=== PATIENT | female | born 1995 | race Asian ===

== ENCOUNTER 2016-07-15 00:36 | Emergency (ER) | payer OTHER ==
[~2016-07-15] VITALS: Ht 167.6 cm; Wt 61.5 kg
[2016-07-15 00:39] VITALS: BP 135/92; PULSE 99; TEMP 37.2; O2SAT 99; Ht 167.6 cm; Wt 61.5 kg
--- NOTE | 2016-07-15 00:59 | EMERGENCY ROOM VISIT NOTE ---
History Report prepared by Destinyibdeclan: Abel Ortega Under the Supervision of: Dr. Man Modi D.O. First contact with patient: 00:45 Chief Complaint: LEG PAIN,LEG INJURY Stated Complaint: LEG INJURY History of Present Illness The patient is a 21 year old female who presents to the Emergency Room with complaints of a worsening infection on her left leg that started three days ago. The patient scraped her leg on a chair prior to the infection. She denies any fevers. The patient denies any medical problems, including diabetes. She does not have any known drug allergies. The patient's tetanus shot is up to date. Source of History: patient Onset: three days ago Position: leg (left) Quality: other (infection) Timing: worsening Associated Symptoms: No fevers Review of Systems See HPI for pertinent positives and negatives. A total of ten systems were reviewed and were otherwise negative. Past Medical & Surgical Medical Problems: (1) No known drug allergy (2) No known health problems Family History No pertinent family history Social History Smoking Status: Never Smoker Occupation Status: [employer] student Current/Historical Medications Scheduled Mupirocin (Bactroban 2% Oint), 1 APPLN EXT BID Sulfa/Trimethoprim (Bactrim Ds 800MG/160MG), 1 TAB PO BID Physical Exam Vital Signs Date Time Temp Pulse Resp B/P Pulse Ox O2 Delivery O2 Flow Rate FiO2 07/15/16 00:39 37.2 99 18 135/92 99 Room Air Physical Exam GENERAL: Awake, alert, well-appearing, in no distress HENT: Normocephalic, atraumatic. Oropharynx unremarkable. EYES: Normal conjunctiva. Sclera non-icteric. NECK: Supple. No nuchal rigidity. FROM. No JVD. RESPIRATORY: Clear to auscultation. CARDIAC: Regular rate, normal rhythm. Extremities warm and well perfused. Pulses equal. ABDOMEN: Soft, non-distended. No tenderness to palpation. No rebound or guarding. No masses. RECTAL: Deferred. MUSCULOSKELETAL: Chest examination reveals no tenderness. The back is symmetrical on inspection without obvious abnormality. There is no CVA tenderness to palpation. No joint edema. LOWER EXTREMITIES: Calves are equal size bilaterally and non-tender. No edema. Left lower extremity anterior charles with area of abrasion and erythema, no lymphangitis. NEURO: Normal sensorium. No sensory or motor deficits noted. SKIN: No rash or jaundice noted. Medical Decision & Procedures Medications Administered Medications (Trade) Dose Ordered Sig/Ayah Route Start Time Stop Time Status Last Admin Dose Admin Trimethoprim/ Sulfamethoxazole (Septra Ds 800/ 160MG Tab) 1 tab NOW STAT PO 07/15/16 01:06 07/15/16 01:07 DC 07/15/16 01:19 1 TAB ED Course 0048: The patient was evaluated in room B5. A complete history and physical exam was performed. 0100: Discussed the discharge instructions with her. She verbalized understanding and agreement. The patient is ready for discharge. 0106: Septra Ds 800 / 160 mg PO. Medical Decision Differential diagnosis includes abrasion, early cellulitis, early abscess, folliculitis. Patient will be treated for a superficial infection of the left charles. There is no obvious signs of cellulitis or necrotizing fasciitis. The patient is nontoxic. Impression Primary Impression: Cellulitis Scribe Attestation The scribe's documentation has been prepared under my direction and personally reviewed by me in its entirety. I confirm that the note above accurately reflects all work, treatment, procedures, and medical decision making performed by me. Departure Information Dispostion Home / Self-Care Prescriptions Sulfa/Trimethoprim (Bactrim Ds 800MG/160MG) Tab 1 TAB PO BID, #14 TAB Prov: Man Modi, DO 07/15/16 Mupirocin (Bactroban 2% Oint) 66 Appln/22 Gm Oint 1 APPLN EXT BID for 5 Days, #60 TUBE Prov: Man Modi, DO 07/15/16 Referrals No Doctor, Assigned (PCP) Patient Instructions Cellulitis Scott, My [facility] Problem Qualifiers Primary Impression: Cellulitis Site of cellulitis: extremity Site of cellulitis of extremity: lower extremity Laterality: left Qualified Codes: L03.116 - Cellulitis of left lower limb
[2016-07-15] MEDS ORDERED: SULFAMETHOXAZOLE/TRIMETHOPRIM DS 800/160MG TAB PO STA (01:06)
[2016-07-15] MEDS ORDERED: SULF800T23 PO (01:06)
[2016-07-15] MEDS ORDERED: BCTROWC EXT (01:06)
== END 2016-07-15 01:15 | disposition home or self-care (01) ==
LOC: C.EDB 00:38
DX: L03.116 Cellulitis of left lower limb (principal)

== ENCOUNTER 2016-07-18 22:28 | Emergency (ER) | payer OTHER ==
[~2016-07-18] VITALS: Ht 167.6 cm; Wt 61.8 kg
[~2016-07-18 22:28] MED LIST: BCTROWC EXT; SULF800T23 PO
[2016-07-18 22:39] VITALS: TEMP 37; Ht 167.6 cm; Wt 61.8 kg
[2016-07-18] MEDS ORDERED: BCTROWC EXT (23:26)
[2016-07-18] MEDS ORDERED: SULF800T23 PO (23:26)
[2016-07-18] MEDS ORDERED: CEPHALEXIN 500MG HOME PACK 1 EA BTL PO ONE (23:30)
[2016-07-18] MEDS ORDERED: CEPHALEXIN MONOHYDRATE 250 MG CAP PO ONE (23:30)
--- NOTE | 2016-07-18 23:31 | EMERGENCY ROOM VISIT NOTE ---
History Report prepared by Lou: Reena Saravia Under the Supervision of: Dr. Lidia Salguero M.D. First contact with patient: 23:09 Chief Complaint: WOUND INFECTION Stated Complaint: LEFT LEG PAIN, INFECTION History of Present Illness The patient is a 21 year old female who presents to the Emergency Room with complaints of a worsening infection on the left lower leg starting about 1 week [employer]. The patient states that she hit her charles was sitting in a chair and was seen at the ED last week for the wound. She states that she was put on an antibiotic (bactrim) and had a antibiotic cream for the wound but states that it has been worsening. She states that the redness around the wound is getting bigger. She denies any fevers. Source of History: patient Onset: 1 week [employer] Position: leg (left) Timing: worsening Associated Symptoms: No fevers Review of Systems See HPI for pertinent positives & negatives. A total of 6 systems reviewed and were otherwise negative. Past Medical & Surgical Medical Problems: (1) No known drug allergy (2) No known health problems Family History No pertinent family history Social History Smoking Status: Never Smoker Marital Status: single Occupation Status: [employer] student Current/Historical Medications Scheduled Cephalexin Monohydrate (Keflex), 500 MG PO QID Mupirocin (Bactroban 2% Oint), 1 APPLN EXT BID Sulfamethoxazole-Trimethoprim (Bactrim Ds 800MG/160MG), 1 TAB PO BID Allergies Coded Allergies: No Known Allergies (Unverified , 07/18/16) Physical Exam Vital Signs Date Time Temp Pulse Resp B/P Pulse Ox O2 Delivery O2 Flow Rate FiO2 07/18/16 23:59 94 18 124/74 98 07/18/16 22:39 37.0 69 18 125/87 98 Room Air Physical Exam Vital signs reviewed. General: Well-appearing female, in no significant distress. Extremities: No peripheral edema, wound as described above. Skin: 3 cm scalp like area to the left charles with minimal erythema surrounding, no lymphangitic streaking, no drainage. Neuro: Awake, alert and oriented x 3 Medical Decision & Procedures Medications Administered Medications (Trade) Dose Ordered Sig/Ayah Route Start Time Stop Time Status Last Admin Dose Admin Cephalexin Monohydrate (Keflex 500MG Home Pack) 1 homepack NOW ONCE PO 07/18/16 23:30 07/18/16 23:31 DC 07/18/16 23:54 1 HOMEPACK Cephalexin Monohydrate (Keflex Cap) 500 mg NOW ONCE PO 07/18/16 23:30 07/18/16 23:31 DC 07/18/16 23:54 500 MG ED Course 2327: Past medical records reviewed. The patient was evaluated in room C9. A complete history and physical examination was performed. I discussed with her the results to her examination. She agreed to the treatment plan. The patient was discharged home. 2330: Ordered Keflex Cap 500 mg PO, Cephalexin monohydrate 1 homepack PO. Medical Decision Differential diagnosis: Etiologies such as cellulitis, abscess, MRSA infection, DVT, necrotizing fasciitis, dermatitis, drug eruption, as well as others were entertained.. This pt was evaluated and appeared to be in no distress. PE is concerning for erythema immediately surrounding the wound. Pt was not been washing the wound, only allowing water to run over it. Wound care instructions were reiterated. Pt was given keflex 500 mg po and a RX for 7 days. She will f/u with PCP or [facility] this week for reevaluation and return to the ED for worsening of symptoms or any medical concerns. Impression Primary Impression: Wound infection, posttraumatic Scribe Attestation The scribe's documentation has been prepared under my direction and personally reviewed by me in its entirety. I confirm that the note above accurately reflects all work, treatment, procedures, and medical decision making performed by me. Departure Information Dispostion Home / Self-Care Prescriptions Cephalexin Monohydrate (Keflex) 500 Mg Cap 500 MG PO QID, #23 CAP Prov: Lidia Salguero M.D. 07/18/16 Referrals No Doctor, Assigned (PCP) Forms HOME CARE DOCUMENTATION FORM, IMPORTANT VISIT INFORMATION, WORK / SCHOOL INSTRUCTIONS Patient Instructions My [facility] Additional Instructions Diagnosis: Post traumatic wound infection Keflex 500 mg four times daily for 7 days. Follow up with your doctor this week for reevaluation Wash wound 1-2 times daily with gentle soap (baby soap, IVORY, DOVE or CETAPHIL ) and dry with a clean towel. Apply bacitracin ointment and a bandage. Follow up with [facility] this week for reevaluation. Return to emergency for worsening of symptoms or any medical concerns.
[2016-07-18] MEDS ORDERED: CEPH500C PO (23:40)
[2016-07-18 23:59] VITALS: BP 124/74; PULSE 94; O2SAT 98
== END 2016-07-19 00:01 | disposition home or self-care (01) ==
LOC: C.EDB 22:29 → C.EDC 07-19 00:01
DX: S81.802A Unspecified open wound, left lower leg, initial encounter (principal); L08.9 Local infection of the skin and subcutaneous tissue, unspecified; Y84.9 Medical procedure, unspecified as the cause of abnormal reaction of the patient, or of later complication, without mention of misadventure at the time of the procedure